=== PATIENT | male | born 1965 | race Caucasian/White ===

== ENCOUNTER → 2019-12-16 13:14 | Outpatient (CLI) | payer OTHER, SELFPAY ==
--- NOTE | 2019-12-16 | DI.RAD.S_ITS ---
PROCEDURE: XR CHEST 2V INDICATIONS: Chronic obstructive pulmonary disease with (acute) lower res TECHNIQUE: 2 views of the chest were acquired. COMPARISON: None. FINDINGS: Surgical changes and devices: None. Lungs and pleura: Lungs are clear. No pleural effusions or pneumothorax. Mediastinum: Mediastinal contours are normal. Heart size is normal. Bones and chest wall: No suspicious bony abnormalities. Soft tissues appear unremarkable. IMPRESSION: No acute disease Dictated by: Markos Jones M.D. on 12/16/2019 at 15:54 Approved by: Markos Jones M.D. on 12/16/2019 at 15:55
--- NOTE | 2019-12-22 08:24 | PM.PFT.1 ---
Pulmonary Function Test Referral & Results Date Patient Seen: 12/16/19 Requesting provider: Cristiano Burleson Results: The spirometry demonstrates an FVC of 1.79 L which is 32% of predicted. The FEV1 was measured at 1.45 L which is 33% of predicted. The FEV1/FVC ratio was 81 which is 105% of predicted. Following the administration of bronchodilator there was a 36% improvement in FEV1 and a 90% improvement in FEF 25-75%. No lung volumes were performed Interpretation: This study demonstrates severe obstructive lung disease with evidence of benefit following bronchodilator as above.
== END ==
PROVIDERS: Referring Provider Orthopaedic Surgery; Visit Provider Orthopaedic Surgery
DX: J44.0 Chronic obstructive pulmonary disease with (acute) lower respiratory infection (principal)
CPT/HCPCS: 71046; 94060